=== PATIENT | female | born 2000 | race Caucasian/White ===

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

== ENCOUNTER 2022-01-28 18:28 | Emergency (ER) | payer MEDICAID ==
[~2022-01-28] VITALS: Ht 170 cm; Wt 93.0 kg
[~2022-01-28 18:28] MED LIST changes: -AMPH10CA; +DEXT10CA18; -TRAM50TA2; +TRM50T
[2022-01-28] MEDS ORDERED: LACTATED RINGERS 1,000 ML IV ONE (19:00)
--- NOTE | 2022-01-28 19:02 | ED Cardiac General ---
History of Present Illness General Chief Complaint: Cardiac/General Problems Stated Complaint: SOB,HIGH HR Nursing Triage Note: PT AMB TO RM 9 WITH C/O INCREASED HR FOR ABOUT 2 WEEKS THAT COMES AND GOES AND NOTICED SOME SHORTNESS OF BREATH TODAY. PT STATES HER HR WAS IN THE 130S AT [facility] TODAY Source: patient History of Present Illness Date Seen by Provider: Jan 28, 2022 Time Seen by Provider: 18:40 Initial Comments PT ARRIVES VIA POV--SENT FROM [facility] PT IS CURRENTLY NOT HAVING ANY SYMPTOMS PT C/O ELEVATED HEART RATE OFF AND ON FOR THE LAST 2 WEEKS--STATES THE HIGHEST HEART RATE SHE HAS SEEN IS 165--FROM HER WATCH BHARGAVI. C/O SHORTNESS OF BREATH OFF OFF AND ON, TODAY IT WAS A LITTLE BIT MORE. BUT DOES NOT FEEL SHORT OF BREATH NOW. STATES IT IS "TIGHTNESS FROM MY LUNGS TO MY STOMACH" BEGAN AROUND 1330 TODAY, WAS "JUST HANGING OUT WITH FRIENDS" TODAY-INSIDE OCCASIONAL NAUSEA, NO VOMITING. NO DIARRHEA. NO ABDOMINAL PAIN. NO NAUSEA NOW + SWEATS --WHEN SHE HAS BEEN INSIDE AND OUTSIDE, BUT NOT TODAY OCCASIONAL DIZZINESS ON STANDING NO SWELLING IN LEGS/ FEET OR PAIN IN CALVES NO FEVER. 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 PT HAS HISTORY OF GENERALIZED ANXIETY DISORDER AND PANIC DISORDER, AND ADHD SHE TAKES VENLAFAXINE--NO MEDICATION CHANGES SHE ALSO HAS RHEUMATOID ARTHRITIS--DOES NOT TAKE MEDICATION FOR IT. LMP --IN DECEMBER, PERIODS ARE IRREGULAR--HAS NEXPLANON IN PLACE. HAD COVID VACCINE X 2--IN 2020 NO FLU VACCINE ASA po CODING SPEC: No [facility]ABEL RONQUILLO Allergies and Home Medications Allergies Coded Allergies: No Known Drug Allergies (Unverified , 10/21/17) Patient Home Medication List Amoxicillin/Potassium Clav (Augmentin 875-125 Tablet) 1 Each Tablet, 1 EACH PO BID Prescribed by: RAJAN IVEY on 10/21/171912 Celecoxib (Celecoxib) 200 Mg Capsule, 1 CAP PO UD, (Reported) Entered as Reported by: JUAN BUSBY on 10/23/16241 Dextroamphetamine/Amphetamine (Dextroamp-Amphet ER 10 mg Cap) 10 Mg Cap.er.24h, (Reported) Entered as Reported by: JOVANI REAL on 12/04/162155 Fluoxetine HCl (Fluoxetine HCl) 10 Mg Tablet, 1 TAB PO UD, (Reported) Entered as Reported by: JUAN BUSBY on 10/23/16241 Fluticasone Propionate (Fluticasone Propionate) 16 Gm [place].susp, (Reported) Entered as Reported by: JOVANI REAL on 12/04/162155 Levonorgestrel-Ethin Estradiol (Lutera-28 Tablet) 1 Each Tablet, 1 TAB PO UD, (Reported) Entered as Reported by: JUAN BUSBY on 10/23/16241 Prednisone (Prednisone) 20 Mg Tab, 40 MG PO DAILY Prescribed by: MARY FOUNTAIN on 07/14/181847 Sulfasalazine (Sulfasalazine Dr) 500 Mg Tablet.dr, 1 TAB PO UD, (Reported) Entered as Reported by: JUAN BUSBY on 10/23/16241 Tramadol HCl (Tramadol HCl) 50 Mg Tablet, (Reported) Entered as Reported by: JOVANI REAL on 12/04/162155 Review of Systems Review of Systems Constitutional: see HPI EENTM: No Symptoms Reported Respiratory: See HPI Cardiovascular: See HPI Gastrointestinal: See HPI Genitourinary: No Symptoms Reported Musculoskeletal: no symptoms reported Skin: no symptoms reported Psychiatric/Neurological: No Symptoms Reported Endocrine: No Symptoms Reported Hematologic/Lymphatic: No Symptoms Reported Past Uczhlkr-Zrxfcn-Rmwskw Hx Patient Social History Tobacco Use?: No Smoking Status: Never a Smoker Smokeless Tobacco Frequency: Never a User Use of E-Cig and/or Vaping dev: No Use of E-Cig and/or Vaping Rajeev: Never a User Substance use?: No Alcohol Use?: No Pt feels they are or have been: No Immunizations Up To Date Tetanus Booster (TDap): Less than 5yrs PED Vaccines UTD: Yes Influenza Vaccine Up-to-Date: No; Not Current First/Initial COVID19 Vaccinat: APR 2021 Second COVID19 Vaccination Murtaza: MAY 2021 COVID19 Vaccine Paver Layer: Fliiby Seasonal Allergies Seasonal Allergies: Yes Past Medical History Surgery/Hospitalization HX: ADHD, ANXIETY, PANIC DISORDER, RA Surgeries: No Respiratory: No Cardiac: No Neurological: No Reproductive Disorders: Yes (NEXPLANON IN PLACE) Female Reproductive Disorders: Endometriosis Genitourinary: No Gastrointestinal: Yes Gastroesophageal Reflux Musculoskeletal: Yes (CHRONIC PAIN,ANKYLOSING SPONDYLITIS, ) Arthritis, Rheumatoid Arthritis, Chronic Back Pain Endocrine: No (OBESITY) HEENT: No Cancer: No Psychosocial: Yes ADD/ADHD, Anxiety, Depression Integumentary: No Blood Disorders: No Family Medical History Asthma, Seizures Physical Exam Vital Signs Vital Signs - First Documented 01/28/22 18:40 Temp 37.0 Pulse 113 Resp 18 B/P (MAP) 156/93 (114) Capillary Refill : Height, Weight, BMI Height: 5'6.00" Weight: 135lbs. oz. 61.978448wb; 32.00 BMI Method:Stated General Appearance: No Apparent Distress, WD/WN, Obese, Other (LAYING OUTSTRETCHED. DOES NOT APPEAR TO BE ILL OR IN ANY DISCOMFORT OR DISTRESS. ) HEENT: PERRL/EOMI, Normal ENT Inspection Neck: Full Range of Motion, Normal Inspection, Non Tender, Supple Respiratory: Normal Breath Sounds, No Accessory Muscle Use, No Respiratory Distress Cardiovascular: No Edema, No JVD, No Murmur, Normal Peripheral Pulses, Tachycardia (110'S) Gastrointestinal: Non Tender, Soft Extremity: Normal Capillary Refill, Normal Inspection, Normal Range of Motion, Non Tender, No Calf Tenderness, No Pedal Edema Neurologic/Psychiatric: Alert, Oriented x3, No Motor/Sensory Deficits, Normal Mood/Affect, chief innovation officer II-XII Norm as Tested Skin: Normal Color, Warm/Dry; No Rash Progress/Results/Core Measures Results/Orders Lab Results Laboratory Tests Test 01/28/22 18:51 01/28/22 19:05 01/28/22 19:40 Range/Units Influenza Type A (RT-PCR) Not Detected Not Detecte Influenza Type B (RT-PCR) Not Detected Not Detecte SARS-CoV-2 RNA (RT-PCR) Not Detected Not Detecte Urine Color YELLOW Urine Clarity SL CLOUDY Urine pH 6.0 5-9 Urine Specific [place] >=1.030 1.016-1.022 Urine Protein NEGATIVE NEGATIVE Urine Glucose (UA) NEGATIVE NEGATIVE Urine Ketones NEGATIVE NEGATIVE Urine Nitrite NEGATIVE NEGATIVE Urine Bilirubin NEGATIVE NEGATIVE Urine Urobilinogen 0.2 < = 1.0 MG/DL Urine Leukocyte Esterase 1+ H NEGATIVE Urine RBC (Auto) 1+ H NEGATIVE Urine RBC NONE /HPF Urine WBC 5-10 H /HPF Urine Squamous Epithelial Cells 2-5 /HPF Urine Renal Epithelial Cells NONE /HPF Urine Crystals NONE /LPF Urine Bacteria LARGE H /HPF Urine Casts NONE /LPF Urine Mucus SMALL H /LPF Urine Culture Indicated YES Urine Opiates Screen NEGATIVE NEGATIVE Urine Oxycodone Screen NEGATIVE NEGATIVE Urine Methadone Screen NEGATIVE NEGATIVE Urine Propoxyphene Screen NEGATIVE NEGATIVE Urine Barbiturates Screen NEGATIVE NEGATIVE Ur Tricyclic Antidepressants Screen NEGATIVE NEGATIVE Urine Phencyclidine Screen NEGATIVE NEGATIVE Urine Amphetamines Screen NEGATIVE NEGATIVE Urine Methamphetamines Screen NEGATIVE NEGATIVE Urine Benzodiazepines Screen NEGATIVE NEGATIVE Urine Cocaine Screen NEGATIVE NEGATIVE Urine Cannabinoids Screen NEGATIVE NEGATIVE White Blood Count 8.0 4.3-11.0 10^3/uL Red Blood Count 4.49 3.80-5.11 10^6/uL Hemoglobin 13.4 11.5-16.0 g/dL Hematocrit 40 35-52 % Mean Corpuscular Volume 89 80-99 fL Mean Corpuscular Hemoglobin 30 25-34 pg Mean Corpuscular Hemoglobin Concent 33 32-36 g/dL Red Cell Distribution Width 12.5 10.0-14.5 % Platelet Count 259 130-400 10^3/uL Mean Platelet Volume 10.6 9.0-12.2 fL Immature Granulocyte % (Auto) 0 % Neutrophils (%) (Auto) 62 42-75 % Lymphocytes (%) (Auto) 32 12-44 % Monocytes (%) (Auto) 5 0-12 % Eosinophils (%) (Auto) 1 0-10 % Basophils (%) (Auto) 0 0-10 % Neutrophils # (Auto) 4.9 1.8-7.8 10^3/uL Lymphocytes # (Auto) 2.5 1.0-4.0 10^3/uL Monocytes # (Auto) 0.4 0.0-1.0 10^3/uL Eosinophils # (Auto) 0.1 0.0-0.3 10^3/uL Basophils # (Auto) 0.0 0.0-0.1 10^3/uL Immature Granulocyte # (Auto) 0.0 0.0-0.1 10^3/uL Prothrombin Time 13.4 12.2-14.7 SEC INR Comment 1.0 0.8-1.4 Activated Partial Thromboplast Time 30 24-35 SEC D-Dimer 0.19 0.00-0.49 UG/ML Sodium Level 138 135-145 MMOL/L Potassium Level 3.7 3.6-5.0 MMOL/L Chloride Level 101 98-107 MMOL/L Carbon Dioxide Level 22 21-32 MMOL/L Anion Gap 15 H 5-14 MMOL/L Blood Urea Nitrogen 17 7-18 MG/DL Creatinine 0.76 0.60-1.30 MG/DL Estimat Glomerular Filtration Rate 115 BUN/Creatinine Ratio 22 Glucose Level 84 70-105 MG/DL Calcium Level 9.7 8.5-10.1 MG/DL Corrected Calcium 9.5 8.5-10.1 MG/DL Magnesium Level 1.9 1.6-2.4 MG/DL Total Bilirubin 0.7 0.1-1.0 MG/DL Aspartate Amino Transf (AST/SGOT) 34 5-34 U/L Alanine Aminotransferase (ALT/SGPT) 49 0-55 U/L Alkaline Phosphatase 114 40-136 U/L B-Type Natriuretic Peptide < 10.0 <100.0 PG/ML Total Protein 8.0 6.4-8.2 GM/DL Albumin 4.2 3.2-4.5 GM/DL TSH [place] Testing 3.20 0.35-4.94 UIU/ML Serum Test, Qualitative NEGATIVE NEGATIVE My Orders Orders - RAJAN IVEY DO Ed Iv/Invasive Line Start (01/28/22 18:40) Ekg Tracing (01/28/22 18:40) O2 (01/28/22 18:40) Monitor-Rhythm Ecg Trace Only (01/28/22 18:40) Chest 1 View, Ap/Pa Only (01/28/22 18:40) Bnp [place] (01/28/22 18:40) Cbc With Automated Diff (01/28/22 18:40) Comprehensive Metabolic Panel (01/28/22 18:40) Drug Screen Stat (Urine) (01/28/22 18:40) Hcg,Qualitative Serum (01/28/22 18:40) Magnesium (01/28/22 18:40) Thyroid Analyzer (01/28/22 18:40) Ua Culture If Indicated (01/28/22 18:40) Covid 19 Inhouse Test (01/28/22 18:40) Ed Iv/Invasive Line Start (01/28/22 18:40) Influenza A And B By Pcr (01/28/22 18:40) Isolation Central Supply Req (01/28/22 18:40) Fibrin Degradation Products (01/28/22 18:40) Protime With Inr (01/28/22 18:40) Partial Thromboplastin Time (01/28/22 18:40) Ed Iv/Invasive Line Start (01/28/22 18:50) Lactated Ringers (Lr 1000 Ml Iv Solution (01/28/22 19:00) Urine Culture (01/28/22 19:05) Vital Signs/I&O 01/28/22 18:40 Temp 37.0 Pulse 113 Resp 18 B/P (MAP) 156/93 (114) Blood Pressure Mean: 114 Progress Progress Note : Progress Note PLACED IN ISOLATION ROOM PPE WORN COVID AND FLU TESTING DONE UNABLE TO OBTAIN IV, BUT PT IS DRINKING FLUIDS HR DOWN AND NO SYMPTOMS FOR ENTIRE ER STAY Initial ECG Impression Date: Jan 28, 2022 Initial ECG Impression Time: 18:49 Initial ECG Rate: 102 Initial ECG Rhythm: S.Tach Initial ECG Comparisson: No Previous ECG Available Departure Impression Primary Impression: Urinary tract infection Additional Impression: Heat exhaustion Disposition: 01 HOME, SELF-CARE Condition: Stable Departure-Patient Inst. Decision time for Depature: 20:30 Referrals: [facility] (PCP) Primary Care Physician JOHN RONQUILLO APRN (Family) Primary Care Physician Patient Instructions: Urinary Tract Infection, Adult (DC), Heat Illness ED Add. Discharge Instructions: INCREASE YOUR FLUID INTAKE--ESPECIALLY EQUAL AMOUNTS OF WATER AND GATORADE--DRINK ENOUGH SO YOU ARE URINATING EVERY 2 HOURS WHILE AWAKE AVOID THE HEAT MUCH POSSIBLE, AND LIMIT YOUR TIME IN THE HEAT TO LESS THAN 30 MINUTES AT A TIME. TYLENOL AND MOTRIN NEEDED FOR PAIN FOLLOW UP WITH [facility] ON SUNDAY FOR FURTHER CARE, RETURN TO ER IF WORSE All discharge instructions reviewed with patient and/or family. Voiced understanding. Scripts Nitrofurantoin Monohyd/M-Cryst (Macrobid 100 mg Capsule) 100 Mg Capsule 1 TAB PO BID, #20 CAP Prov: RAJAN IVEY DO 01/28/22 RAJAN IVEY DO Jan 28, 2022 19:02
[2022-01-28 19:13] LABS: BILIRUBIN,URINE NEGATIVE (NEGATIVE); CLARITY,URINE SL CLOUDY; COLOR,URINE YELLOW; GLUCOSE, URINE (UA) NEGATIVE (NEGATIVE); KETONES,URINE NEGATIVE (NEGATIVE); LEUKOCYTE ESTERASE ,URINE 1+ (NEGATIVE); NITRITE,URINE NEGATIVE (NEGATIVE); PROTEIN,URINE NEGATIVE (NEGATIVE)
[2022-01-28 19:19] LABS: BACTERIA,URINE LARGE /HPF
[2022-01-28 19:24] LABS: AMPHETAMINE SCREEN, URINE NEGATIVE (NEGATIVE); BARBITURATE SCREEN URINE NEGATIVE (NEGATIVE); BENZODIAZEPINES SCREEN URINE NEGATIVE (NEGATIVE); CANNABINOID SCREEN, URINE NEGATIVE (NEGATIVE); COCAINE SCREEN URINE NEGATIVE (NEGATIVE); METHADONE STAT NEGATIVE (NEGATIVE); OPIATE SCREEN URINE NEGATIVE (NEGATIVE); OXYCODONE STAT NEGATIVE (NEGATIVE); PROPOXYPHENE STAT NEGATIVE (NEGATIVE); TRICYCLIC ANTIDEPRESSANTS SCRE NEGATIVE (NEGATIVE)
--- NOTE | 2022-01-28 19:42 | Diagnostic Imaging Report ---
INDICATION: Dyspnea. EXAMINATION: Frontal chest was obtained at 7:15 p.m. COMPARISON: 07/14/2018. FINDINGS: There is some degree of hyperinflation. There is no focal infiltrate or pneumothorax or pleural fluid. The appearance of the chest has not changed compared to the prior study. There is mild scoliotic change again noted. IMPRESSION: Negative chest. Dictated by: Dictated on workstation # [id number]
[2022-01-28 19:46] LABS: BASOPHILS % (AUTO) 0 % (0-10); EOSINOPHILS # (AUTO) 0.1 10^3/uL (0.0-0.3); EOSINOPHILS % (AUTO) 1 % (0-10); HEMATOCRIT 40 % (35-52); HEMOGLOBIN 13.4 g/dL (11.5-16.0); LYMPHOCYTES # (AUTO) 2.5 10^3/uL (1.0-4.0); LYMPHOCYTES % (AUTO) 32 % (12-44); MEAN CORPUSCULAR HEMOGLOBIN 30 pg (25-34); MEAN CORPUSCULAR HGB CONC 33 g/dL (32-36); MEAN CORPUSCULAR VOLUME 89 fL (80-99); MEAN PLATELET VOLUME 10.6 fL (9.0-12.2); MONOCYTES # (AUTO) 0.4 10^3/uL (0.0-1.0); MONOCYTES % (AUTO) 5 % (0-12); NEUTROPHILS # (AUTO) 4.9 10^3/uL (1.8-7.8); NEUTROPHILS % (AUTO) 62 % (42-75); PLATELET COUNT 259 10^3/uL (130-400)
[2022-01-28 20:00] LABS: FIBRIN DEGRADATION PRODUCTS 0.19 UG/ML (0.00-0.49); PROTHROMBIN TIME PATIENT 13.4 SEC (12.2-14.7)
[2022-01-28 20:03] LABS: ALBUMIN 4.2 GM/DL (3.2-4.5); BILIRUBIN,TOTAL 0.7 MG/DL (0.1-1.0); CALCIUM 9.7 MG/DL (8.5-10.1); CREATININE SERUM 0.76 MG/DL (0.60-1.30); MAGNESIUM 1.9 MG/DL (1.6-2.4); POTASSIUM 3.7 MMOL/L (3.6-5.0)
[2022-01-28 20:23] LABS: TSH (THYROID ANALYZER) 3.2 UIU/ML (0.35-4.94)
[2022-01-28] MEDS ORDERED: LIDOCAINE 1% INJ 20 ML VIAL INJ ONE (20:30)
[2022-01-28] MEDS ORDERED: cefTRIAXone 1,000 MG VIAL IM ONE (20:30)
[2022-01-28] MEDS ORDERED: NITR-65 PO (20:33)
[2022-01-28 21:08] VITALS: BP 128/84
== END 2022-01-28 21:08 ==
LOC: EDUNIT# 18:28 → ER 18:30
DX: T67.5XXA Heat exhaustion, unspecified, initial encounter (principal); N39.0 Urinary tract infection, site not specified; F41.0 Panic disorder [episodic paroxysmal anxiety]; F90.9 Attention-deficit hyperactivity disorder, unspecified type; E66.9 Obesity, unspecified; Z68.32 Body mass index [BMI] 32.0-32.9, adult; Z79.899 Other long term (current) drug therapy; Z20.822 Contact with and (suspected) exposure to COVID-19; Z32.02 Encounter for pregnancy test, result negative; X30.XXXA Exposure to excessive natural heat, initial encounter
CPT/HCPCS: 36415; 71045; 80053; 80306; 81000; 83735; 83880; 84443; 84703; 85025; 85379; 85610; 85730; 87088; 87636; 93005; 93041

== ENCOUNTER → 2022-03-16 | Outpatient (CLI) | payer BC ==
[~2022-03-16] MED LIST changes: +NITR-65 PO
[2022-03-16] MEDS: RT-ALBUTEROL SULF 2.5 MG/3 ML PRE-MIX VIAL INH ONE (10:48)
== END ==
LOC: RT 09:30
PROVIDERS: ATTEND Internal Medicine Cardiovascular Disease
DX: R06.9 Unspecified abnormalities of breathing (principal); R06.00 Dyspnea, unspecified
CPT/HCPCS: 93306; 94060; 94726; 94729

== ENCOUNTER 2022-11-27 21:05 | Observation (INO) | payer BC ==
[~2022-11-27] VITALS: Ht 170.2 cm; Wt 98.1 kg
[~2022-11-27 21:05] MED LIST changes: -FLUO10TA PO; +FLUO10TA28 PO
--- NOTE | 2022-11-27 21:25 | ED General ---
General Chief Complaint: OB < 20 WEEKS Stated Complaint: ABD PAIN Nursing Triage Note: PT TO RM 3 BY EMS WITH CC OF LOWER ABD PAIN SINCE 1700 THIS AM. PT STATES IS 4-6 WEEKS . PT REPORTS NAUSEA. DENIES VOMITING AND DIARREAH. SEEN AT PCP THIS AM FOR CHECK UP Source of Information: Patient, EMS Exam Limitations: No Limitations History of Present Illness Date Seen by Provider: Nov 27, 2022 Time Seen by Provider: 21:07 Initial Comments Here by EMS with report of dizziness although yesterday and nausea today and feeling like she may pass out. Patient reports that she has been having chills and sweating today but denies fever or upper respiratory symptoms. Reports urinating okay. This is her first . She was notified. See yesterday. Complains of lower abdominal pain especially left lower quadrant. EMS reports that they did have blood pressures in the range of 80s systolic on a couple values. They did initiate IV and started normal saline 1 L bolus that is continuing to run now. Patient did not have nausea or vomiting for them and so no Zofran or other medications given. Heart rate was noted to be 60s to 100 per EMS. Timing/Duration: 1-2 Days, Getting Worse Severity: Moderate Associated Systoms: No Cough, No Fever/Chills; Nausea/Vomiting; No Shortness of Air; Weakness Allergies and Home Medications Allergies Coded Allergies: No Known Drug Allergies (Unverified , 10/21/17) Patient Home Medication List Home Medication List Reviewed: Yes Amoxicillin/Potassium Clav (Augmentin 875-125 Tablet) 1 Each Tablet, 1 EACH PO BID Prescribed by: RAJAN IVEY on 10/21/171912 Celecoxib (Celecoxib) 200 Mg Capsule, 1 CAP PO UD, (Reported) Entered as Reported by: JUAN BUSBY on 10/23/16241 Dextroamphetamine/Amphetamine (Dextroamp-Amphet ER 10 mg Cap) 10 Mg Cap.er.24h, (Reported) Entered as Reported by: JOVANI REAL on 12/04/162155 Fluoxetine HCl (Fluoxetine HCl) 10 Mg Tablet, 1 TAB PO UD, (Reported) Entered as Reported by: JUAN BUSBY on 10/23/16241 Fluticasone Propionate (Fluticasone Propionate) 16 Gm [place].susp, (Reported) Entered as Reported by: JOVANI REAL on 12/04/162155 Levonorgestrel-Ethin Estradiol (Lutera-28 Tablet) 1 Each Tablet, 1 TAB PO UD, (Reported) Entered as Reported by: JUAN BUSBY on 10/23/16241 Nitrofurantoin Monohyd/M-Cryst (Macrobid 100 mg Capsule) 100 Mg Capsule, 1 TAB PO BID Prescribed by: RAJAN IVEY on 01/28/222032 Prednisone (Prednisone) 20 Mg Tab, 40 MG PO DAILY Prescribed by: MARY FOUNTAIN on 07/14/18 184 Sulfasalazine (Sulfasalazine Dr) 500 Mg Tablet.dr, 1 TAB PO UD, (Reported) Entered as Reported by: JUAN BUSBY on 10/23/16241 Tramadol HCl (Tramadol HCl) 50 Mg Tablet, (Reported) Entered as Reported by: JOVANI REAL on 12/04/162155 Review of Systems Review of Systems Constitutional: see HPI; No chills, No fever EENTM: No nose congestion, No throat pain Respiratory: No cough, No short of breath Cardiovascular: No chest pain; syncope (Reports near syncope) Gastrointestinal: abdominal pain (LLQ); No diarrhea; nausea; No vomiting Genitourinary: no symptoms reported : Yes Musculoskeletal: no symptoms reported Psychiatric/Neurological: Anxiety, Weakness Past Iwsxaiv-Bssvou-Yexcso Hx Patient Social History Tobacco Use?: No Substance use?: No Alcohol Use?: No Pt feels they are or have been: No Immunizations Up To Date Tetanus Booster (TDap): Less than 5yrs PED Vaccines UTD: Yes First/Initial COVID19 Vaccinat: APR 2021 Second COVID19 Vaccination Murtaza: MAY 2021 Third COVID19 Vaccination Date: APR 2021 Seasonal Allergies Seasonal Allergies: Yes Past Medical History Surgery/Hospitalization HX: ADHD, ANXIETY, PANIC DISORDER, RA Surgeries: No Respiratory: No Cardiac: No Neurological: No Reproductive Disorders: Yes (NEXPLANON IN PLACE) Female Reproductive Disorders: Endometriosis Genitourinary: No Gastrointestinal: Yes Gastroesophageal Reflux Musculoskeletal: Yes (CHRONIC PAIN,ANKYLOSING SPONDYLITIS, ) Arthritis, Rheumatoid Arthritis, Chronic Back Pain Endocrine: No (OBESITY) HEENT: No Cancer: No Psychosocial: Yes ADD/ADHD, Anxiety, Depression Integumentary: No Blood Disorders: No Family Medical History Reviewed Nursing Family Hx Asthma, Seizures Physical Exam Vital Signs Vital Signs - First Documented 11/27/22 21:06 Pulse 93 Resp 18 B/P (MAP) 126/76 (93) Pulse Ox 100 O2 Delivery Room Air Capillary Refill : Less Than 3 Seconds Height, Weight, BMI Height: 5'6.00" Weight: 135lbs. oz. 61.339025ol; 32.00 BMI Method:Stated General Appearance: No Apparent Distress, WD/WN HEENT: PERRL/EOMI, Pharynx Normal Neck: Non Tender, Supple Respiratory: Lungs Clear, Normal Breath Sounds Cardiovascular: Regular Rate, Rhythm, No Murmur Gastrointestinal: Soft, Tenderness (Suprapubic and left lower quadrant) Extremity: Normal Range of Motion, Non Tender Neurologic/Psychiatric: Alert, Oriented x3 Skin: Normal Color, Warm/Dry Progress/Results/Core Measures Suspected Sepsis SIRS Temperature: Pulse: 93 Respiratory Rate: 18 Laboratory Tests 11/27/22 21:20: White Blood Count 7.5 Blood Pressure 126 /76 Mean: 93 Laboratory Tests 11/27/22 21:20: Creatinine 0.73, Platelet Count 230, Total Bilirubin 0.6 Results/Orders Lab Results Laboratory Tests Test 11/27/22 21:20 11/27/22 21:25 Range/Units White Blood Count 7.5 4.3-11.0 10^3/uL Red Blood Count 4.00 3.80-5.11 10^6/uL Hemoglobin 12.0 11.5-16.0 g/dL Hematocrit 36 35-52 % Mean Corpuscular Volume 90 80-99 fL Mean Corpuscular Hemoglobin 30 25-34 pg Mean Corpuscular Hemoglobin Concent 33 32-36 g/dL Red Cell Distribution Width 12.6 10.0-14.5 % Platelet Count 230 130-400 10^3/uL Mean Platelet Volume 10.9 9.0-12.2 fL Immature Granulocyte % (Auto) 0 % Neutrophils (%) (Auto) 63 42-75 % Lymphocytes (%) (Auto) 31 12-44 % Monocytes (%) (Auto) 5 0-12 % Eosinophils (%) (Auto) 1 0-10 % Basophils (%) (Auto) 0 0-10 % Neutrophils # (Auto) 4.7 1.8-7.8 10^3/uL Lymphocytes # (Auto) 2.3 1.0-4.0 10^3/uL Monocytes # (Auto) 0.4 0.0-1.0 10^3/uL Eosinophils # (Auto) 0.1 0.0-0.3 10^3/uL Basophils # (Auto) 0.0 0.0-0.1 10^3/uL Immature Granulocyte # (Auto) 0.0 0.0-0.1 10^3/uL Sodium Level 137 135-145 MMOL/L Potassium Level 3.5 L 3.6-5.0 MMOL/L Chloride Level 104 98-107 MMOL/L Carbon Dioxide Level 22 21-32 MMOL/L Anion Gap 11 5-14 MMOL/L Blood Urea Nitrogen 10 7-18 MG/DL Creatinine 0.73 0.60-1.30 MG/DL Estimat Glomerular Filtration Rate 120 BUN/Creatinine Ratio 14 Glucose Level 120 H 70-105 MG/DL Calcium Level 8.6 8.5-10.1 MG/DL Corrected Calcium 8.9 8.5-10.1 MG/DL Total Bilirubin 0.6 0.1-1.0 MG/DL Aspartate Amino Transf (AST/SGOT) 19 5-34 U/L Alanine Aminotransferase (ALT/SGPT) 22 0-55 U/L Alkaline Phosphatase 81 40-136 U/L Total Protein 6.7 6.4-8.2 GM/DL Albumin 3.6 3.2-4.5 GM/DL Human Chorionic Gonadotropin, Quant 2143 H <5 MIU/ML Urine Color YELLOW Urine Clarity SL CLOUDY Urine pH 6.0 5-9 Urine Specific [place] 1.015 L 1.016-1.022 Urine Protein NEGATIVE NEGATIVE Urine Glucose (UA) NEGATIVE NEGATIVE Urine Ketones NEGATIVE NEGATIVE Urine Nitrite NEGATIVE NEGATIVE Urine Bilirubin NEGATIVE NEGATIVE Urine Urobilinogen 0.2 < = 1.0 MG/DL Urine Leukocyte Esterase NEGATIVE NEGATIVE Urine RBC (Auto) NEGATIVE NEGATIVE Urine RBC NONE /HPF Urine WBC NONE /HPF Urine Squamous Epithelial Cells 2-5 /HPF Urine Crystals NONE /LPF Urine Bacteria NEGATIVE /HPF Urine Casts NONE /LPF Urine Mucus SMALL H /LPF Urine Culture Indicated NO My Orders Orders - JENNA OLIVER MD Cbc With Automated Diff (11/27/22 21:18) Comprehensive Metabolic Panel (11/27/22 21:18) Hcg,Quantitative (11/27/22 21:18) Ua Culture If Indicated (4/24/23 21:18) Type And Screen (11/27/22 21:18) Vital Signs/I&O 11/27/22 21:06 Pulse 93 Resp 18 B/P (MAP) 126/76 (93) Pulse Ox 100 O2 Delivery Room Air Capillary Refill : Less Than 3 Seconds Blood Pressure Mean: 93 Progress Note : Progress Note IncludeSeen and evaluated. IV by EMS. We will continue normal saline 1 L bolus initiated by EMS. CBC, CMP, hCG quantitative level, UA and type and screen ordered. Bedside ultrasound performed by me which showed quite distended bladder. Unable to verify intrauterine at this point via transabdominal ultrasound. I do not see significant pelvic free fluid at this point. Monitor patient. Differential diagnosis includes ectopic , UTI, threatened miscarriage 2240: I have reviewed labs. Hemoglobin is normal at 12. Labs and chemistries are otherwise normal. hCG quantitative level is 2143. UA is negative. I have repeated bedside ultrasound and do have concerns about pelvic free fluid. I am unsure if this is from ectopic or ruptured cyst. I did discuss the case with Dr. POSEY. She does not meet criteria for ultrasound call back at this point but I do have concerns. He does as well. Patient is normally hypertensive and is on blood pressure medicines and she is currently normotensive and on the low side with ranging mid 90s systolic to low mid 120s systolic. Heart rate in the upper 80s and 90s. Given all of this, we both agree that watching her overnight is appropriate. He will admit her, observation status. Repeat H&H in 4 hours and repeat CBC and hCG quant in the morning. This was discussed with patient and family who agree. Patient will remain n.p.o. and this was discussed with her by me as well. Departure Communication (Admissions) Time/Spoke to Admitting Phy: 22:41 Impression Primary Impression: Left lower quadrant abdominal pain during Disposition: ADMITTED INPATIENT Condition: Stable Admissions Decision to Admit Reason: Admit from ER (General) Decision to Admit/Date: Nov 27, 2022 Time/Decision to Admit Time: 22:41 Departure-Patient Inst. Referrals: [facility] (PCP) Primary Care Physician JOHN RONQUILLO APRN (Family) Primary Care Physician JENNA OLIVER MD Nov 27, 2022 21:25
[2022-11-27 21:36] LABS: BASOPHILS % (AUTO) 0 % (0-10); EOSINOPHILS # (AUTO) 0.1 10^3/uL (0.0-0.3); EOSINOPHILS % (AUTO) 1 % (0-10); HEMATOCRIT 36 % (35-52); LYMPHOCYTES # (AUTO) 2.3 10^3/uL (1.0-4.0); LYMPHOCYTES % (AUTO) 31 % (12-44); MEAN CORPUSCULAR HEMOGLOBIN 30 pg (25-34); MEAN CORPUSCULAR HGB CONC 33 g/dL (32-36); MEAN CORPUSCULAR VOLUME 90 fL (80-99); MEAN PLATELET VOLUME 10.9 fL (9.0-12.2); MONOCYTES # (AUTO) 0.4 10^3/uL (0.0-1.0); MONOCYTES % (AUTO) 5 % (0-12); NEUTROPHILS # (AUTO) 4.7 10^3/uL (1.8-7.8); NEUTROPHILS % (AUTO) 63 % (42-75); PLATELET COUNT 230 10^3/uL (130-400); WHITE BLOOD COUNT 7.5 10^3/uL (4.3-11.0)
[2022-11-27 21:52] LABS: ALBUMIN 3.6 GM/DL (3.2-4.5); POTASSIUM 3.5 MMOL/L (3.6-5.0)
[2022-11-27 21:53] LABS: CALCIUM 8.6 MG/DL (8.5-10.1)
[2022-11-27 21:54] LABS: TOTAL PROTEIN 6.7 GM/DL (6.4-8.2)
[2022-11-27 21:56] LABS: BILIRUBIN,TOTAL 0.6 MG/DL (0.1-1.0)
[2022-11-27 21:58] LABS: CREATININE SERUM 0.73 MG/DL (0.60-1.30)
[2022-11-27 21:58] LABS: BILIRUBIN,URINE NEGATIVE (NEGATIVE); CLARITY,URINE SL CLOUDY; COLOR,URINE YELLOW; GLUCOSE, URINE (UA) NEGATIVE (NEGATIVE); KETONES,URINE NEGATIVE (NEGATIVE); LEUKOCYTE ESTERASE ,URINE NEGATIVE (NEGATIVE); NITRITE,URINE NEGATIVE (NEGATIVE); PROTEIN,URINE NEGATIVE (NEGATIVE)
[2022-11-27 22:04] LABS: BACTERIA,URINE NEGATIVE /HPF
[2022-11-27] MEDS ORDERED: fentaNYL INJ 100 MCG/2 ML AMP IVP STA (23:09)
[2022-11-28] VITALS (13 sets, daily range): BP systolic 93–134; BP diastolic 48–73
[2022-11-28 02:46] LABS: HEMOGLOBIN 10.6 g/dL (11.5-16.0)
[2022-11-28] MEDS ORDERED: fentaNYL INJ 100 MCG/2 ML AMP ONE ×2 (02:49→08:17)
[2022-11-28] MEDS ORDERED: NS IV 1000 ML 1,000 ML ONE (02:49)
[2022-11-28] MEDS: NS IV 1000 ML 1,000 ML IV SCH ×2 (02:50→13:08)
[2022-11-28] MEDS ORDERED: ONDANSETRON 4 MG/2 ML (SDV) Z0FRAN IV PRN (04:00)
[2022-11-28] MEDS ORDERED: fentaNYL INJ 100 MCG/2 ML AMP IV PRN (04:00)
[2022-11-28 05:47] LABS: BASOPHILS % (AUTO) 0 % (0-10); EOSINOPHILS % (AUTO) 0 % (0-10); HEMATOCRIT 30 % (35-52); HEMOGLOBIN 10.1 g/dL (11.5-16.0); LYMPHOCYTES # (AUTO) 0.7 10^3/uL (1.0-4.0); LYMPHOCYTES % (AUTO) 10 % (12-44); MEAN CORPUSCULAR HEMOGLOBIN 30 pg (25-34); MEAN CORPUSCULAR HGB CONC 33 g/dL (32-36); MEAN CORPUSCULAR VOLUME 90 fL (80-99); MEAN PLATELET VOLUME 10.9 fL (9.0-12.2); MONOCYTES # (AUTO) 0.2 10^3/uL (0.0-1.0); MONOCYTES % (AUTO) 4 % (0-12); NEUTROPHILS % (AUTO) 86 % (42-75); PLATELET COUNT 241 10^3/uL (130-400)
--- NOTE | 2022-11-28 08:10 | History & Physical-Surgical ---
HPO-Surgical History of Present Illness Chief Complaint: PT TO RM 3 BY EMS WITH CC OF LOWER ABD PAIN SINCE 1699 THIS AM. PT STATES IS 4-6 WEEKS . PT REPORTS NAUSEA. DENIES VAGINAL BLEEDING, VOMITING AND DIARRHEA. SEEN AT PCP THIS AM FOR CHECK UP. Diagnosis/Surgical Indication: Free fluid in pelvis, US suspicous for ruptured ectopic Procedure: Diagnostic laparoscopy Date of Surgery: Nov 28, 2022 Weight (Pounds): 135 Height (Feet): 5 Height (Inches): 6.00 Allergies and Home Medications Allergies Coded Allergies: No Known Drug Allergies (Unverified , 10/21/17) Patient Home Medication List Home Medication List Reviewed: Yes Amoxicillin/Potassium Clav (Augmentin 875-125 Tablet) 1 Each Tablet, 1 EACH PO BID Prescribed by: RAJAN IVEY on 10/21/171912 Celecoxib (Celecoxib) 200 Mg Capsule, 1 CAP PO UD, (Reported) Entered as Reported by: JUAN BUSBY on 10/23/16241 Dextroamphetamine/Amphetamine (Dextroamp-Amphet ER 10 mg Cap) 10 Mg Cap.er.24h, (Reported) Entered as Reported by: JOVANI REAL on 12/04/162155 Fluoxetine HCl (Fluoxetine HCl) 10 Mg Tablet, 1 TAB PO UD, (Reported) Entered as Reported by: JUAN BUSBY on 10/23/16241 Fluticasone Propionate (Fluticasone Propionate) 16 Gm [place].susp, (Reported) Entered as Reported by: JOVANI REAL on 12/04/162155 Levonorgestrel-Ethin Estradiol (Lutera-28 Tablet) 1 Each Tablet, 1 TAB PO UD, (Reported) Entered as Reported by: JUAN BUSBY on 10/23/16241 Nitrofurantoin Monohyd/M-Cryst (Macrobid 100 mg Capsule) 100 Mg Capsule, 1 TAB PO BID Prescribed by: RAJAN IVEY on 01/28/222032 Prednisone (Prednisone) 20 Mg Tab, 40 MG PO DAILY Prescribed by: MARY FOUNTAIN on 07/14/181847 Sulfasalazine (Sulfasalazine Dr) 500 Mg Tablet.dr, 1 TAB PO UD, (Reported) Entered as Reported by: JUAN BUSBY on 10/23/16241 Tramadol HCl (Tramadol HCl) 50 Mg Tablet, (Reported) Entered as Reported by: JOVANI REAL on 12/04/166 Past Eherbrt-Wwjgup-Bcldnz Hx Patient Social History Alcohol Beverage of Choice: Wine Smoking Status: Never a Smoker 2nd Hand Smoke Exposure: No Recent Hopitalizations: No Have you traveled recently?: No Alcohol Use?: No Pt feels they are or have been: No Immunizations Up To Date Tetanus Booster (TDap): Less than 5yrs Pediatric: Yes Seasonal Allergies Seasonal Allergies: Yes Surgeries No Respiratory No Cardiovascular No Neurological No Reproductive System Last Menstrual Period: Oct 27, 2022 Hx : 1 Hx Para: 0 Hx Total # of Abortions (Spona: 0 Hx Reproductive Disorders: Yes (NEXPLANON IN PLACE) Female Reproductive Disorders: Endometriosis Genitourinary No Gastrointestinal Yes Gastroesophageal Reflux Musculoskeletal Yes (CHRONIC PAIN,ANKYLOSING SPONDYLITIS, ) Arthritis, Rheumatoid Arthritis, Chronic Back Pain Endocrine History of Endocrine Disorders: No (OBESITY) HEENT History of HEENT Disorders: No Cancer No Psychosocial History of Psychiatric Problem: Yes Behavioral Health Disorders: ADD/ADHD, Anxiety, Depression Integumentary History of Skin or Integumenta: No Blood Transfusions History of Blood Disorders: No Family Medical History Significant Family History: Asthma, Seizures Exam Vital Signs Vital Signs 11/28/22 03:51 Temp 36.4 Pulse 94 Resp 18 B/P (MAP) 112/65 (81) Pulse Ox 100 O2 Delivery Room Air Capillary Refill : Less Than 3 Seconds Labs Laboratory Tests Test 11/27/22 21:20 11/27/22 21:25 11/28/22 02:40 11/28/22 05:05 Range/Units White Blood Count 7.5 7.0 4.3-11.0 10^3/uL Red Blood Count 4.00 3.34 L 3.80-5.11 10^6/uL Hemoglobin 12.0 10.6 L 10.1 L 11.5-16.0 g/dL Hematocrit 36 32 L 30 L 35-52 % Mean Corpuscular Volume 90 90 80-99 fL Mean Corpuscular Hemoglobin 30 30 25-34 pg Mean Corpuscular Hemoglobin Concent 33 33 32-36 g/dL Red Cell Distribution Width 12.6 12.5 10.0-14.5 % Platelet Count 230 241 130-400 10^3/uL Mean Platelet Volume 10.9 10.9 9.0-12.2 fL Immature Granulocyte % (Auto) 0 0 % Neutrophils (%) (Auto) 63 86 H 42-75 % Lymphocytes (%) (Auto) 31 10 L 12-44 % Monocytes (%) (Auto) 5 4 0-12 % Eosinophils (%) (Auto) 1 0 0-10 % Basophils (%) (Auto) 0 0 0-10 % Neutrophils # (Auto) 4.7 6.0 1.8-7.8 10^3/uL Lymphocytes # (Auto) 2.3 0.7 L 1.0-4.0 10^3/uL Monocytes # (Auto) 0.4 0.2 0.0-1.0 10^3/uL Eosinophils # (Auto) 0.1 0.0 0.0-0.3 10^3/uL Basophils # (Auto) 0.0 0.0 0.0-0.1 10^3/uL Immature Granulocyte # (Auto) 0.0 0.0 0.0-0.1 10^3/uL Sodium Level 137 135-145 MMOL/L Potassium Level 3.5 L 3.6-5.0 MMOL/L Chloride Level 104 98-107 MMOL/L Carbon Dioxide Level 22 21-32 MMOL/L Anion Gap 11 5-14 MMOL/L Blood Urea Nitrogen 10 7-18 MG/DL Creatinine 0.73 0.60-1.30 MG/DL Estimat Glomerular Filtration Rate 120 BUN/Creatinine Ratio 14 Glucose Level 120 H 70-105 MG/DL Calcium Level 8.6 8.5-10.1 MG/DL Corrected Calcium 8.9 8.5-10.1 MG/DL Total Bilirubin 0.6 0.1-1.0 MG/DL Aspartate Amino Transf (AST/SGOT) 19 5-34 U/L Alanine Aminotransferase (ALT/SGPT) 22 0-55 U/L Alkaline Phosphatase 81 40-136 U/L Total Protein 6.7 6.4-8.2 GM/DL Albumin 3.6 3.2-4.5 GM/DL Human Chorionic Gonadotropin, Quant 2143 H 1853 H <5 MIU/ML Urine Color YELLOW Urine Clarity SL CLOUDY Urine pH 6.0 5-9 Urine Specific [place] 1.015 L 1.016-1.022 Urine Protein NEGATIVE NEGATIVE Urine Glucose (UA) NEGATIVE NEGATIVE Urine Ketones NEGATIVE NEGATIVE Urine Nitrite NEGATIVE NEGATIVE Urine Bilirubin NEGATIVE NEGATIVE Urine Urobilinogen 0.2 < = 1.0 MG/DL Urine Leukocyte Esterase NEGATIVE NEGATIVE Urine RBC (Auto) NEGATIVE NEGATIVE Urine RBC NONE /HPF Urine WBC NONE /HPF Urine Squamous Epithelial Cells 2-5 /HPF Urine Crystals NONE /LPF Urine Bacteria NEGATIVE /HPF Urine Casts NONE /LPF Urine Mucus SMALL H /LPF Urine Culture Indicated NO General Appearance: Alert, Oriented X3 HEENT: Atraumatic Respiratory: Clear to Auscultation Cardiovascular: Regular Rate Abdominal: Normal Bowel Sounds Neuro: Normal Gait Psych/Mental Status: Mental Status NL Assessment/Plan Assessment and Plan Diagnosis: 22 yo w/ suspected Ruptured ectopic US suggestive of free fluid in pelvis consistent with blood. P: Diagnostic laparoscopy Admission Diagnosis Admission Status: Observation QI POSEY DO Nov 28, 2022 08:10
[2022-11-28] MEDS ORDERED: LIDOCAINE PF 2% 5 ML (XYLOCAINE) VIAL ONE (08:17)
[2022-11-28] MEDS ORDERED: ROCURONIUM 50 MG/5 ML (ZEMURON) VIAL IV ONE (08:17)
[2022-11-28] MEDS ORDERED: MIDAZOLAM 2 MG/2 ML (VERSED) VIAL ONE (08:17)
[2022-11-28] MEDS ORDERED: proPOfol 200 MG/20 ML (DIPRIVAN) VIAL IV ONE (08:17)
[2022-11-28] MEDS ORDERED: KETOROLAC 30 MG/ML VIAL ONE (08:17)
[2022-11-28] MEDS ORDERED: ONDANSETRON 4 MG/2 ML (SDV) Z0FRAN ONE (08:17)
--- NOTE | 2022-11-28 08:24 | Diagnostic Imaging Report ---
INDICATION: and pain. FINDINGS: No intrauterine gestation identified. The endometrium unremarkable. The right ovary appeared unremarkable. No normal appearing left ovarian parenchyma could be discretely identified, there is abnormal mass effect in the left adnexa and aggregate measuring 6.3 x 3.4 x 7.8 cm as well as at least moderate volume of complex pelvic free fluid, suspect for hemoperitoneum. The left adnexal mass effect revealed no independent cardiac activity and no extrauterine gestational sac could be clearly identified however the pattern is suspicious for an adnexal/ectopic gestation with a pelvic hemoperitoneum suspected owing to its rupture. IMPRESSION: 1. No intrauterine gestation. 2. Abnormal mass effect in the left adnexa with complex pelvic free fluid suspicious for ectopic gestation and hemoperitoneum. No extrauterine gestational sac could be identified with the left pelvic/adnexal mass effect itself measuring 7.8 cm in maximal dimension. Unclear how much of this is owing to a suspected ectopic gestation versus a hematoma. Preliminary suspicion for hemoperitoneum and ruptured ectopic gestation in the left adnexa has been relayed to the ordering physician prior to this dictation. Dictated by: Dictated on workstation # [id number]
[2022-11-28] MEDS ORDERED: BUPIVACAINE 0.25% 30 ML (SENSORCAINE) VIAL ONE (08:38)
[2022-11-28] MEDS: LACTATED RINGERS 1,000 ML IV PRN ×2 (09:05→10:00)
--- NOTE | 2022-11-28 09:39 | Discharge Inst-Women's Service ---
Discharge Inst-Women's Serv Depart Medication/Instructions New, Converted or Re-Newed RX: Transmitted to Pharmacy Problems Reviewed?: Yes Consults/Follow Up Additional Follow Up: Yes Orders/Referrals Dr. Lara/ELECTRICAL TECHNICIAN INSTRUCTOR in 1-2 weeks Activity Activity: Activity as Tolerated Driving Instructions: No Driving for 1 Week NO SMOKING: NO SMOKING Nothing Inside Vagina: No Douching, No [place], No Tampons Diet Discharge Diet: No Restrictions Symptoms to Report to : Bleeding Excessive, Pain Increased, Fever Over 101 Degrees F, Vaginal Bleeding Increase, Questions/Concerns For Any Problems or Questions: Contact Your Physician Skin/Wound Care Infection Signs and Symptoms: Increased Redness, Foul Odor of Wound, Increased Drainage, Skin Itchy or Has a Rash, Increased Swelling, Temperature Above 101 F Operative Area Clean and Dry: Keep Incision Clean/Dry Stitches/Emeli/Dermabond: Dermabond, Care of Stitches Bathing Instructions: QI Pringle DO Nov 28, 2022 09:39
[2022-11-28] MEDS ORDERED: IBUP-844 PO (09:41)
[2022-11-28] MEDS ORDERED: DOCU-143 PO (09:41)
[2022-11-28] MEDS ORDERED: ACHD5005 PO (09:41)
[2022-11-28] MEDS ORDERED: IBUPROFEN 600 MG (MOTRIN) TAB PO PRN (09:45)
[2022-11-28] MEDS ORDERED: D5 LR IV SOLUTION 1,000 ML IV SCH (09:45)
[2022-11-28] MEDS ORDERED: HYDROcodone/APAP 5 MG/325 MG (LORTAB) TAB PO PRN (09:45)
[2022-11-28] MEDS ORDERED: ONDANSETRON 4 MG/2 ML (SDV) Z0FRAN IVP PRN ×2 (09:45→10:30)
[2022-11-28] MEDS ORDERED: KETOROLAC 30 MG/ML VIAL IVP ONE (09:45)
[2022-11-28] MEDS ORDERED: GLYCOPYRROLATE 0.2 MG/ML (ROBINUL) 2 ML VIAL ONE (10:12)
[2022-11-28] MEDS ORDERED: NEOSTIGMINE 3 MG/3 ML VIAL ONE (10:12)
[2022-11-28] MEDS ORDERED: SEVOFLURANE (ULTANE) 15 ML INHAL SOLN ONE (10:21)
[2022-11-28] MEDS ORDERED: MEPERIDINE (DEMEROL) INJ 50 MG/ML IVP ONE (10:30)
[2022-11-28] MEDS ORDERED: PROMETHAZINE INJ 25 MG/ML (PHENERGAN) AMP IVP ONE (10:30)
[2022-11-28] MEDS ORDERED: morphine INJ 10 MG/ML 1ML (SYR OR VIAL) IVP ONE (10:30)
[2022-11-28] MEDS ORDERED: HYDROmorphone 2 MG/ML VIAL (DILAUDID) IV ONE (10:30)
--- NOTE | 2022-11-28 11:56 | Anesthesia-General Post-Op ---
General Patient Condition Mental Status/LOC: Same as Preop Cardiovascular: Satisfactory Nausea/Vomiting: Absent Respiratory: Satisfactory Pain: Controlled Complications: Absent Post Op Complications Complications None Follow Up Care/Instructions Patient Instructions None needed. Anesthesia/Patient Condition Patient Condition Patient is doing well, no complaints, stable vital signs, no apparent adverse anesthesia problems. No complications reported per nursing. DIANA GRIFFIN CRNA Nov 28, 2022 11:56
--- NOTE | 2022-11-28 21:34 | OPERATIVE REPORT ---
PREOPERATIVE DIAGNOSES: A 22-year-old female with suspected hematoperitoneum and ectopic . POSTOPERATIVE DIAGNOSES: A 22-year-old female with suspected hematoperitoneum and ectopic . PROCEDURE: Operative laparoscopy with partial left salpingectomy and evacuation of hematoperitoneum. SURGEON: Qi Posey DO CONCESSION CASHIER: Emilee Chen DNP necessary for manipulation and retraction throughout the procedure. ANESTHESIA: General endotracheal. ESTIMATED BLOOD LOSS: 1200 mL of blood evacuated from the pelvis. URINE OUTPUT: 50 mL clear at the end of the procedure. FLUIDS: 1700 mL lactated Ringer's solution. FINDINGS: A 1-1.2 liters hematoperitoneum. Grossly normal-appearing right fallopian tube and ovary. The left fallopian tube suspicious for ectopic , dilated and bleeding from the distal ampullary portion. Grossly normal appearing left ovary and uterus. SPECIMEN SENT: Left ectopic , and fallopian tubes. INDICATIONS FOR PROCEDURE: This 22-year-old female was admitted from the emergency room last night for extreme pelvic and abdominal pain and suspicion for finding of ectopic . Her vital signs were stable. Her hemoglobin was 12 and she was kept overnight in observation. We had a drop in her hemoglobin down to 10 this morning. Her vital signs remained stable; however, due to suspicion for ectopic on ultrasound. I discussed with the patient proceeding with diagnostic laparoscopy and addressing this matter. Risk of procedure discussed with the patient and her significant other who is at bedside. After all of her questions were answered, she was agreeable to proceed. Consent was obtained. The patient was taken to the operating room. OPERATIVE REPORT IN DETAIL: Once in the operating room, general anesthesia was found to be adequate, was placed in dorsal lithotomy position, prepped and draped in normal sterile fashion. A Graves speculum inserted to the patient's vagina, which allowed me to visualize the cervix, was grasped at 12 o'clock position using a long Allis clamp. I then placed a Kronner uterine manipulator to a depth of 8 cm. I removed all the other instruments from the patient's vagina, performed change of gloves. I turned my attention to the abdomen after Rivera catheter had been placed. Once at the abdomen with fresh gloves, I introduced a Veress needle subcostally at the midclavicular line on the left side using Veress needle until intraperitoneal placement was confirmed using saline drop test and opening pressure of 5 mmHg was noted. I proceeded with CO2 insufflation to maximum pressure of 15 mmHg, at which point I make a 5 mm infraumbilical incision and introduced a 5 mm blunt laparoscopic trocar until intraperitoneal placement was confirmed using the laparoscope. There was no evidence of damage from entry site. Brief scan of the upper abdominal anatomy appears to be grossly normal and there is no evidence of damage upon the Veress entry site and the Veress was removed at that point. I then have the patient placed in steep Trendelenburg where I am able to visualize the pelvic anatomy and the hematoperitoneum as defined in my findings above. I then placed a suprapubic 5 mm trocar was placed under direct visualization laparoscope. Once this was in place, I used the trocar access to evacuate the hematoperitoneum which she takes roughly 30-45 minutes of suction irrigated. I am able to identify the left fallopian tube, which seems to be the source of bleeding. Using LigaSure device, I threaded the proximal isthmic portion and the distal ampullary portion of fallopian tube and take down the mesosalpinx and blood supply to the ectopic . I then removed this through the 5 mm trocar site using a 5 mm Endopouch bag. After which there was no active bleeding noted from any of my dissection planes. The patient was taken out of steep Trendelenburg where I removed the suprapubic trocar under direct visualization laparoscope and infraumbilical trocars left in place to release insufflation and introduced 10 mL of Marcaine into the peritoneal cavity for postoperative pain management. I then removed this trocar as well. The skin reapproximated using Dermabond. Rivera catheter was removed at the end of the procedure. The patient tolerated the procedure well and was taken to recovery area in stable condition. Lap and sponge counts were correct at the end of the procedure, the counts correct as well. Job ID: [id number] DocumentID: [id number] Dictated Date: 11/28/2022 12:09:48 Turn Laster Date: 11/28/2022 21:33:00 Dictated By: QI POSEY DO
== END 2022-11-28 17:25 | disposition home or self-care (01) ==
LOC: EDUNIT# 21:05 → ER 21:06 → WS 23:53
PROVIDERS: ADMIT Obstetrics & Gynecology; ATTEND Obstetrics & Gynecology
DX: O00.90 Unspecified ectopic pregnancy without intrauterine pregnancy (principal); K66.1 Hemoperitoneum
CPT/HCPCS: 59151; 76801; 76817; 80053; 81000; 84702 ×2; 85014; 85018; 85025 ×2; 86850; 86900; 86901; 87081; 87636; 94664; 96360; 96361; 96374; 96376; 99284; G0378; 36415; 88305